=== PATIENT | male | born 1955 | race Caucasian/White ===

== ENCOUNTER → 2023-11-17 07:18 | Day surgery (SDC) | payer MEDICARE, BC, SELFPAY | LOC: GI 07:18 | PROVIDERS: ATTENDING PHYSICIAN Specialist | DX: Z12.11 Encounter for screening for malignant neoplasm of colon (principal); D12.0 Benign neoplasm of cecum; D12.3 Benign neoplasm of transverse colon; K63.5 Polyp of colon; Z86.010 Personal history of colon polyps | CPT/HCPCS: 45385; 45380; 88305 ==

== ENCOUNTER 2025-04-13 07:50 | Emergency (ER) | payer MEDICARE, BC, SELFPAY ==
[2025-04-13 07:52] VITALS: BP 158/91
--- NOTE | 2025-04-13 09:37 | ED.GENMED ---
History of Present Illness
General
Chief Complaint: Abdominal Symptoms
Source: patient
Time Seen by Provider: 04/13/25 08:45
History of Present Illness
History of Present Illness:
69-year-old male with past medical history of hypertension presenting to the emergency department for evaluation after he woke up on feeling some mild chest congestion, started to increase fluid intake which she states did not really do
anything for him and since Monday has had diminished p.o. intake to both solids and liquids, multiple episodes of nausea and vomiting (last was yesterday evening), generalized fatigue and a mild cough. Patient does note that a coworker had recently
returned from an [employer] and had mild sinus like symptoms and son was also sick with cold-like symptoms last week as well. Patient did take some Tylenol for low-grade fevers with a Tmax of about 100.5, did not take anything yet today.
Patient denies any recent antibiotics or recent travel. Denies any pain presently.
Past History
Past History
ED Past Medical History: HTN
ED Past Surgical History: None
Social History
Tobacco: Non-smoker
Alcohol: Occasional
Drug: None
Personal:
Living: with family
Employment: Employed
Review of Systems
Review of Systems
All Other Systems: ROS reviewed and negative except as documented in HPI and ROS
Phy Exam
Physical Exam
Physical Exam:
GENERAL: Alert , in no apparent distress
EYE: clear conjunctiva b/l
HEAD: NCAT
ENT: o/p clr, mmm.
CARDIAC: Regular rate and rhythm .
LUNGS: Clear breath sounds bilaterally, no acute respiratory distress, no wheezes/rales/rhonchi
ABDOMEN: Soft, without focal tenderness, no r/g, no cvat
NEUROLOGICAL: Alert and oriented
SKIN: Warm and dry, skin intact.
MUSCULOSKELETAL: No edema, well perfused.
PSYCH: Normal and appropriate interaction.
Scores
Heart Failure Risk
Heart Failure Risk Score: Not Applicable
Heart Score for Chest Pain Patients
STEMI patient?: Not applicable
Withdrawal Assessment of Alcohol
Withdrawal Assessment Completed?: Not applicable
Course
Orders/Labs/Results
Orders:
Orders
04/13/25 09:15
Electrocardiogram (*1) Urgent
Reason for Study: Fatigue / Weakness
EKG- Treatment ONCE
0.9% Sodium Chloride 1000 ml [Nss] 1,000 ml IV BOLUS
04/13/25 09:16
CR Chest - 2 Views Urgent
Comment:
Reason For Exam: chest congestion, vomiting
04/13/25 09:33
COVID-19 Antigen Urgent
Source: Nasal Swab
04/13/25 09:47
Complete Blood Count/With Diff Urgent
Comprehensive Metabolic Panel Urgent
Troponin I Urgent
04/13/25 09:52
Ketorolac [Toradol] 15 mg IV NOW STA
Abnormal Lab Results
04/13/25
09:47
Absolute Lymphs (auto) 0.7 L 10^3/uL
(1.2-3.4)
Absolute Monos (auto) 0.9 H 10^3/uL
(0.1-0.6)
Lymphocytes % 12.9 L %
(20.5-51.1)
Monocytes % 16.9 H %
(1.7-9.3)
Sodium 131 L mmol/L
(135-145)
04/13/25 09:47
04/13/25 09:47
Vital Signs
Initial and Last Documented VS:
Initial Vital Signs
Temp Pulse Resp BP Pulse Ox
99.1 F 84 18 158/91 99
04/13/25 07:52 04/13/25 07:52 04/13/25 07:52 04/13/25 07:52 04/13/25 07:52
Last Documented Vital Signs
Temp Pulse Resp BP Pulse Ox
99.1 F 74 21 155/92 98
04/13/25 07:52 04/13/25 11:32 04/13/25 11:32 04/13/25 11:32 04/13/25 11:32
MDM/Problems Addressed
Differential Diagnosis Includes:
Viral syndrome
COVID
Pneumonia
Less concern for surgical abdomen given lack of pain
Dehydration
Electrolyte imbalance
Sinusitis
Atypical ACS presentation
MDM/Problems Addressed:
69-year-old male presenting to the ER for evaluation of cold/flulike symptoms since , and patient were concerned about dehydration due to lack of p.o. intake however patient is hemodynamically stable and in no acute distress, moist
mucous membranes. Will check labs and treat with IV fluids. COVID swab ordered. Will check EKG and troponin given the reported chest congestion although I suspect this is likely virally mediated. Disposition pending
*Radiology
Radiology exam reviewed: preliminary read by ED provider (No infiltrates or effusions)
*Pulse Oximetry
SaO2: 99
Oxygen Mode of Delivery: Room air
Patient hypoxic: no
*Critical Care Note
Total Time (30-74mins, 75-104mins- exclusive of procedures): Not Applicable
Patient Management
Social determinants of health affecting care: Living situation and Strong social support
Escalation/DeEscalation of care consider admission/obs:
Patient's workup is unremarkable for any acute pathologies. Labs within normal limits. There was very mild hyponatremia which is likely from lack of p.o. intake. Chest x-ray unremarkable. Suspect viral etiology is most likely. Continue
supportive care measures at home. Follow-up with primary. Aware of return precautions
ED Attending Note
-
Portions of this chart may have been created with voice recognition software.� Occasional wrong word or��sound alike� substitutions may have occurred due to the inherent limitations of voice recognition software.
Discharge Plan
Departure
Patient Disposition: Home (Routine Discharge)
Date of Disposition: 04/13/25
Time of Disposition: 11:19
Patient with high blood pressure during this ER visit?: Yes
Discharge Problem:
Fatigue
Instructions: [place] Diet
Referrals:
Jong Cunningham MD [Family Provider, [facility]]
Interventions
Interventions:
*Risk Screen - Suicide Last Done: 04/13/25 07:52
*General Assessment Last Done: 04/13/25 07:52
*Neglect/Abuse Screening Last Done: 04/13/25 07:52
*ED- Fall Risk Assessment Last Done: 04/13/25 11:36
*ED COVID-19 Vaccine History Last Done: 04/13/25 11:36
*Nursing Disposition Last Done: 04/13/25 11:36
DJ-Fsgkjd-Piqzldroaw Assessment Last Done: 04/13/25 11:36
Discharge Date and Time
Discharge Date/Time: 04/13/25 11:43
Print Language: TURKMEN
[2025-04-13 09:38] VITALS: BP 157/86
[2025-04-13] MEDS: NSS 1000 IV (09:48)
[2025-04-13 09:54] LABS: COVID-19 Antigen Negative (Negative)
[2025-04-13 10:07] LABS: Hematocrit 47.1 % (39.0-52.0); Hemoglobin 17.1 g/dL (13.0-18.0); Mean Corp Hgb Conc. 36.3 g/dL (33.0-37.0); Mean Corpuscular Volume 83.5 fL (80.0-94.0); Nucleated Red Blood Cells % 0 % (-); Platelet Count 143 10^3/uL (130-400); Red Cell Dist. Width 11.9 % (11.5-14.5)
[2025-04-13 10:28] LABS: ALT (SGPT) 23 U/L (0-50); AST (SGOT) 32 U/L (17-59); Albumin 4.5 g/dl (3.5-5.0); Alkaline Phosphatase 71 U/L (38-126); Blood Urea Nitrogen 19 mg/dl (9-20); Calcium 8.8 mg/dl (8.4-10.2); Carbon Dioxide 24 mmol/L (22-30); Chloride 100 mmol/L (98-107); Glucose 87 mg/dl (70-99); Potassium 4.1 mmol/L (3.5-5.1); Sodium 131 mmol/L (135-145); Total Protein 7.3 g/dl (6.3-8.2); eGFR > 60.00
[2025-04-13] MEDS: TORADOL 15 MG IV (10:28)
[2025-04-13 10:41] LABS: Troponin I < 0.012 ng/ml
[2025-04-13 11:32] VITALS: BP 155/92
== END 2025-04-13 11:43 | disposition home or self-care (01) ==
LOC: EMR 07:50
PROVIDERS: Physician Assistant Medical; EMERGENCY PHYSICIAN Emergency Medicine; FAMILY PHYSICIAN Family Medicine
DX: R53.1 Weakness (principal); R53.83 Other fatigue; I10 Essential (primary) hypertension; R11.2 Nausea with vomiting, unspecified; Z20.822 Contact with and (suspected) exposure to COVID-19
CPT/HCPCS: 99285; 96374; 96361; 71046; 80053; 84484; 85025; 87811; 93005